=== PATIENT | male | born 1980 ===

== ENCOUNTER → 2021-03-19 13:46 | Outpatient (BNVA) | payer OTHER, SELFPAY | PROVIDERS: Visit Provider Family Medicine | DX: Z01.812 Encounter for preprocedural laboratory examination (principal); Z20.822 Contact with and (suspected) exposure to COVID-19 | CPT/HCPCS: 87426 ==

== ENCOUNTER → 2021-04-10 08:37 | Outpatient (BNVA) | payer OTHER, SELFPAY | PROVIDERS: Visit Provider Orthopaedic Surgery | DX: M25.562 Pain in left knee (principal) | CPT/HCPCS: 73562 ==

== ENCOUNTER 2021-04-13 14:34 | Outpatient (CLI) | payer OTHER, SELFPAY ==
--- NOTE | 2021-04-13 15:15 | MR_ITS ---
WS: [id number] MRI LEFT KNEE HISTORY: M25.569 - Pain in unspecified knee COMPARISON: 04/10/2021 Anterior cruciate ligament: Intact. Posterior cruciate ligament: Intact. Medial collateral ligament: Increased T2 signal medial and lateral to the MCL. No tear identified. Posterior lateral corner structures: Intact. Medial menisci: Focal increased signal in the posterior horn extends to the inferior articular surfac e. This may be intrasubstance degeneration and not a full-thickness tear. There is additional bluntin g probably representing a tear involving the free edge of the posterior horn. Lateral meniscus: Intact. Normal signal, size and shape. Extensor mechanism: Distal quadriceps tendon and patellar tendons are intact. Fluid and soft tissue: Small suprapatellar joint effusion. There is additional edema along the anteri or medial knee and extending along the medial head of the gastrocnemius muscle. There is a Mcclain's cy st with adjacent edema. Mcclain's cyst is lobulated extending over length of at least 4 cm. There is in creased T2 signal distal to the Mcclain's cyst and also decreased signal layering in the Mcclain's cyst. Osseous and articular structures: Patellofemoral compartment: Normal. Medial compartment: Mild narrowing of the medial compartment with thinning of the cartilage. There is a small amount of marrow edema involving the medial tibial plateau. Lateral compartment: Very mild narrowing. No marrow edema. MR/MR knee LT wo con* [id number] IMPRESSION: 1. Mild narrowing medial compartment with a small amount of marrow edema invol ving the tibial plateau and fissuring of the cartilage. 2. Suspicious for radial tear involving the free edge posterior horn medial me niscus. 3. Small suprapatellar effusion with edema along the medial knee. 4. Mildly complex Mcclain's cyst cyst with adjacent fluid. There is also layerin g low signal in the Mcclain's cyst. Suspect there may have been a partial rupture or hemorrhage involving the Mcclain's cyst recently.
== END 2021-04-13 14:35 | disposition home or self-care (01) ==
LOC: RADSHAW 14:38
PROVIDERS: PCP Family Medicine; Visit Provider Orthopaedic Surgery
DX: M25.562 Pain in left knee (principal); M71.22 Synovial cyst of popliteal space [Baker], left knee; M25.462 Effusion, left knee
CPT/HCPCS: 73721

== ENCOUNTER 2023-01-21 06:21 | Outpatient (CLI) | payer OTHER, SELFPAY ==
--- NOTE | 2023-01-21 06:15 | USCV_ITS ---
Gonzales Harmoned Age: 42 Gender: M : 1980 Exam Date: 01/21/2023 06:28 Ordering Phys: Catalino Ureña MD Technologist: Sona Andrea Exam Location: [facility] [place] Indication: Prior DX of lower EF BP: 150 / 80 HR: 65 Rhythm: Sinus Technical Quality: Good MEASUREMENTS (Male / Female) Normal Values 2D ECHO LV Diastolic Diameter PLAX 4.7 cm 4.2 - 5.9 / 3.9 - 5.3 cm LV Systolic Diameter PLAX 3.9 cm LV Chamber Size 3.5 cm IVS Diastolic Thickness 1.0 cm 0.6 - 1.0 / 0.6 - 0.9 cm IVS Systolic Thickness 1.0 cm LVPW Diastolic Thickness 1.1 cm 0.6 - 1.0 / 0.6 - 0.9 cm LVPW Systolic Thickness 1.3 cm RV Chamber Size 2.3 cm LVOT Diameter 2.0 cm LV Ejection Fraction 2D Teich 31.7 % LV Ejection Fraction MOD 2C 60.3 % LV Ejection Fraction 2C AL 56.2 % LA Diameter 2.9 cm LA Width 2.4 cm LA Height 3.1 cm RA Width 2.7 cm RA Height 2.9 cm Aorta at Sinotubular Diameter 3.2 cm IVC Diameter 1.7 cm M-MODE Aortic Annulus Diameter 3.7 cm LA Ao Ratio MM 0.9 MV E Point Septal Separation 0.5 cm DOPPLER AV Peak Velocity 114.0 cm/s LVOT Peak Velocity 74.0 cm/s AV Area Cont Eq vti 2.1 cm squared AV Area Cont Eq pk 2.1 cm squared MV Area PHT 2.9 cm squared Mitral E to A Ratio 1.3 MV E' Velocity 47.0 cm/s Mitral E to MV E' Ratio 12.1 Mitral E to LV E' Lateral Ratio 11.3 Mitral E to LV E' Septal Ratio 13.0 TR Peak Velocity 174.3 cm/s TR Peak Gradient 12.1 mmHg TR Mean Velocity 131.3 cm/s TR Mean Gradient 7.7 mmHg TR Velocity Time Integral 44.9 cm TV Peak E Velocity 70.0 cm/s Right Atrial Pressure 3.0 mmHg Pulmonary Artery Systolic Pressu 15.1 mmHg RV Acceleration Time 0.1 s RV Ejection Time 0.3 s RV AcT/ET 0.4 FINDINGS Left Ventricle Normal left ventricular size, systolic function and wall thickness, with no regional wall motion abnormalities. Left ventricular ejection fraction is estimated at 60 %. Normal diastolic function. Right Ventricle Normal right ventricular size and systolic function. Normal right ventricular systolic pressure. Right Atrium Normal right atrial size. Left Atrium Normal left atrial size. Mitral Valve Structurally normal mitral valve. No mitral valve stenosis. Trace mitral valve regurgitation. Aortic Valve Structurally normal trileaflet aortic valve. No aortic valve stenosis. No aortic valve regurgitation. Tricuspid Valve Structurally normal tricuspid valve. No tricuspid valve stenosis. Trace tricuspid valve regurgitation. Pulmonic Valve Structurally normal pulmonic valve. No pulmonary valve stenosis. Trace pulmonary valve regurgitation. Pericardium No pericardial effusion. Aorta Normal size aortic root and proximal ascending aorta. IVC Normal IVC dimension with >50% respiratory change of the inferior vena cava. CONCLUSIONS 1. Normal left ventricular size, systolic function and wall thickness, with no regional wall motion abnormalities. Left ventricular ejection fraction is estimated at 60 %. Normal diastolic function. 2. No significant valvular abnormality. 3. No prior similar studies to compare. Fe Lind MD (Electronically Signed) Final Date: 21 January 2023 12:50 S
== END 2023-01-21 06:22 | disposition home or self-care (01) ==
PROVIDERS: Visit Provider Family Medicine
DX: I51.89 Other ill-defined heart diseases (principal)
CPT/HCPCS: 93306